=== PATIENT | male | born 1975 | race Caucasian/White ===

== ENCOUNTER 2018-09-10 18:58 | Emergency (ER) | payer OTHER ==
[~2018-09-10] VITALS: Ht 182.9 cm; Wt 87.8 kg
[~2018-09-10 18:58] MED LIST: ALBU6.7H INH
[2018-09-10 19:33] VITALS: BP 135/86
== END 2018-09-10 21:26 | disposition home or self-care (01) ==
LOC: ER 18:58
DX: M79.671 Pain in right foot (principal); F12.90 Cannabis use, unspecified, uncomplicated; F15.90 Other stimulant use, unspecified, uncomplicated; Z79.899 Other long term (current) drug therapy
CPT/HCPCS: 73630; 99283